=== PATIENT | male | born 1980 | race Caucasian/White ===

== ENCOUNTER → 2016-12-24 | Outpatient (REF) | payer BC ==
[2016-12-24 12:08] LABS: ALBUMIN 3.8 GM/DL (3.2-5.2); ALBUMIN/GLOBULIN RATIO 1.36 (1.00-1.93); ALKALINE PHOSPHATASE 57 U/L (45-117); ALT/SGPT 66 U/L (12-78); ANION GAP 7 MEQ/L (8-16); AST/SGOT 18 U/L (15-37); BILIRUBIN,TOTAL 0.3 MG/DL (0.2-1.0); BLOOD UREA NITROGEN 17 MG/DL (7-18); CALCIUM LEVEL 8.8 MG/DL (8.5-10.1); CARBON DIOXIDE LEVEL 29 MEQ/L (21-32); CHLORIDE LEVEL 103 MEQ/L (98-107); CREATININE FOR GFR 0.92 MG/DL (0.70-1.30); GLOMERULAR FILTRATION RATE > 60.0 (>60); GLUCOSE, FASTING 98 MG/DL (70-105); POTASSIUM SERUM 4.1 MEQ/L (3.5-5.1); SODIUM LEVEL 139 MEQ/L (136-145); TOTAL PROTEIN 6.6 GM/DL (6.4-8.2)
== END ==
LOC: M SFHCPLAZ 09:10
PROVIDERS: ATTEND Nurse Practitioner Family
DX: I10 Essential (primary) hypertension (principal); E88.81 Metabolic syndrome and other insulin resistance; E55.9 Vitamin D deficiency, unspecified

== ENCOUNTER 2018-04-06 16:10 | Emergency (ER) | payer BC ==
[2018-04-06] MEDS: NS 1,000 ML IV (17:21)
[2018-04-06 17:32] LABS: VENOUS BASE EXCESS -0.2 (-2.0-2.0); VENOUS HCO3 25.3 MEQ/L (23.0-27.0); VENOUS O2 SATURATION 85.3 % (60.0-80.0); VENOUS PARTIAL PRESSURE CO2 44.3 mmHg (38.0-50.0); VENOUS PH 7.375 UNITS (7.330-7.430); VENOUS TOTAL CO2 26.7 MEQ/L (24.0-28.0)
[2018-04-06 17:36] LABS: BASO # 0.1 10^3/uL (0.0-0.2); BASO % 0.7 % (0.0-1.0); EOS # 0.2 10^3/uL (0.0-0.50); EOS % 1.9 % (0.0-3.0); HEMATOCRIT 44.9 % (42.0-52.0); HEMOGLOBIN 16.4 g/dl (13.5-17.5); IMMATURE GRANULOCYTE % 0.2 % (0-3.0); LYMPH # 2.2 10^3/uL (1.5-4.5); LYMPH % 26.3 % (24.0-44.0); MEAN CORPUSCULAR HEMOGLOBIN 32.2 pg (27.0-33.0); MEAN CORPUSCULAR HGB CONC 36.5 g/dl (32.0-36.5); MEAN CORPUSCULAR VOLUME 88.2 fl (80.0-96.0); MONO # 0.8 10^3/uL (0.0-0.8); NEUTROPHILS # 5.2 10^3/uL (1.8-7.7); NEUTROPHILS % 61.9 % (36.0-66.0); PLATELET COUNT, AUTOMATED 321 10^3/uL (150-450); RED BLOOD COUNT 5.09 10^6/uL (4.30-6.10); WHITE BLOOD COUNT 8.4 10^3/uL (4.0-10.0)
[2018-04-06 17:43] LABS: ALBUMIN 4.1 GM/DL (3.2-5.2); ALBUMIN/GLOBULIN RATIO 1.14 (1.00-1.93); ALKALINE PHOSPHATASE 94 U/L (45-117); ALT/SGPT 143 U/L (12-78); ANION GAP 11 MEQ/L (8-16); AST/SGOT 59 U/L (7-37); BILIRUBIN,DIRECT 0.1 MG/DL (0.0-0.2); BILIRUBIN,TOTAL 0.5 MG/DL (0.2-1.0); BLOOD UREA NITROGEN 14 MG/DL (7-18); CALCIUM LEVEL 8.7 MG/DL (8.5-10.1); CARBON DIOXIDE LEVEL 27 MEQ/L (21-32); CHLORIDE LEVEL 95 MEQ/L (98-107); CREATININE FOR GFR 1.25 MG/DL (0.70-1.30); GLOMERULAR FILTRATION RATE > 60.0 (>60); LIPASE 287 U/L (73-393); POTASSIUM SERUM 4.3 MEQ/L (3.5-5.1); SODIUM LEVEL 133 MEQ/L (136-145); TOTAL PROTEIN 7.7 GM/DL (6.4-8.2)
[2018-04-06 17:44] LABS: ACETONE/KETONE 10.74 MG/DL (<2.81); GLUCOSE, FASTING 433 MG/DL (70-100)
[2018-04-06 17:56] LABS: KETONE, URINE AUTO RFX 1+ mg/dL (NEGATIVE); LEUKOCYTE ESTERASE UR AUTO RFX NEGATIVE (NEGATIVE); NITRITE, URINE AUTO RFX NEGATIVE (NEGATIVE); RBC, URINE AUTO RFX 2 /HPF (0-3); SPECIFIC GRAVITY UR AUTO RFX 1.032 (1.002-1.035); SQUAM EPITHELIAL CELL UR AURFX 0 /HPF (0-6); WBC, URINE AUTO RFX 1 /HPF (0-3)
[2018-04-06 17:58] LABS: ESTIMATED AVERAGE GLUCOSE 272 MG/DL (60-110); HEMOGLOBIN A1c 11.1 %
[2018-04-06] MEDS: metFORMIN (GLUCOPHAGE) 1000 MG TABLET PO (18:08)
[2018-04-06] MEDS: HumuLIN R (REGULAR) INSULIN (NovoLIN R) **100U/ML** PER UNIT IV (18:12)
[2018-04-06 19:11] LABS: VENOUS BASE EXCESS -0.6 (-2.0-2.0); VENOUS HCO3 24.9 MEQ/L (23.0-27.0); VENOUS O2 SATURATION 82.2 % (60.0-80.0); VENOUS PARTIAL PRESSURE CO2 43.8 mmHg (38.0-50.0); VENOUS PARTIAL PRESSURE O2 46.9 mmHg (30.0-50.0); VENOUS PH 7.372 UNITS (7.330-7.430); VENOUS STANDARD HCO3 23.6 MEQ/L; VENOUS TOTAL CO2 26.2 MEQ/L (24.0-28.0)
[2018-04-06 19:16] LABS: BEDSIDE GLUCOSE 308 MG/DL (70-105)
[2018-04-06 20:23] LABS: BEDSIDE GLUCOSE 286 MG/DL (70-105)
[2018-04-12 15:13] LABS: BEDSIDE GLUCOSE 396 MG/DL (70-105)
== END 2018-04-06 21:18 | disposition home or self-care (01) ==
LOC: M ED 16:10
DX: E11.65 Type 2 diabetes mellitus with hyperglycemia (principal); I10 Essential (primary) hypertension; K21.9 Gastro-esophageal reflux disease without esophagitis; Z79.899 Other long term (current) drug therapy; Z79.84 Long term (current) use of oral hypoglycemic drugs; F17.210 Nicotine dependence, cigarettes, uncomplicated
CPT/HCPCS: 83690

== ENCOUNTER → 2018-04-06 | Outpatient (REF) | payer BC ==
[2018-04-06 18:32] LABS: APPEARANCE, URINE CLEAR (CLEAR); BACTERIA, URINE AUTO NEGATIVE (NEGATIVE); BILIRUBIN, URINE AUTO NEGATIVE (NEGATIVE); BLOOD, URINE BLOOD NEGATIVE (NEGATIVE); COLOR, URINE YELLOW (YELLOW); GLUCOSE, URINE (UA) AUTO 3+ mg/dL (NEGATIVE); KETONE, URINE AUTO 1+ mg/dL (NEGATIVE); LEUKOCYTE ESTERASE, URINE AUTO NEGATIVE (NEGATIVE); MUCUS, URINE SMALL (NEGATIVE); NITRITE, URINE AUTO NEGATIVE (NEGATIVE); PROTEIN, URINE AUTO NEGATIVE (NEGATIVE); RBC, URINE AUTO 0 /HPF (0-3); SPECIFIC GRAVITY URINE AUTO 1.039 (1.002-1.035); SQUAMOUS EPITHELIAL CELL UR AU 2 /HPF (0-6); UROBILINOGEN, URINE AUTO 0.2 mg/dL (0.0-2.0); WBC, URINE AUTO 2 /HPF (0-3)
[2018-04-06 23:53] LABS: CHLAMYDIA DNA AMPLIFICATION NEGATIVE (NEGATIVE); GC DNA AMPLIFICATION NEGATIVE (NEGATIVE)
== END ==
LOC: M SFHCPLAZ 17:34
DX: R30.0 Dysuria (principal)

== ENCOUNTER → 2018-04-14 | Outpatient (CLI) | payer BC | LOC: M RAD 15:44 | DX: E04.1 Nontoxic single thyroid nodule (principal) | CPT/HCPCS: 76536 ==

== ENCOUNTER → 2018-06-02 | Outpatient (REF) | payer BC ==
[2018-06-02 15:38] LABS: ALBUMIN 3.8 GM/DL (3.2-5.2); ALBUMIN/GLOBULIN RATIO 1.36 (1.00-1.93); ALKALINE PHOSPHATASE 49 U/L (45-117); ALT/SGPT 81 U/L (12-78); ANION GAP 9 MEQ/L (8-16); AST/SGOT 29 U/L (7-37); BILIRUBIN,TOTAL 0.3 MG/DL (0.2-1.0); BLOOD UREA NITROGEN 15 MG/DL (7-18); CALCIUM LEVEL 8.9 MG/DL (8.5-10.1); CARBON DIOXIDE LEVEL 27 MEQ/L (21-32); CHLORIDE LEVEL 106 MEQ/L (98-107); CHOLESTEROL LEVEL 172 MG/DL (<200); CHOLESTEROL RISK RATIO 4.777 (<5); CREATININE FOR GFR 0.78 MG/DL (0.70-1.30); FREE T4 1.06 NG/DL (0.76-1.46); GLOMERULAR FILTRATION RATE > 60.0 (>60); GLUCOSE, FASTING 110 MG/DL (70-100); HDL CHOLESTEROL 36 MG/DL (>40); LDL CHOLESTEROL 108 MG/DL (<100); NON-HDL-C 136 MG/DL; POTASSIUM SERUM 4.1 MEQ/L (3.5-5.1); SODIUM LEVEL 142 MEQ/L (136-145); TOTAL PROTEIN 6.6 GM/DL (6.4-8.2); TRIGLYCERIDES LEVEL 140 MG/DL (<150)
[2018-06-02 15:41] LABS: ESTIMATED AVERAGE GLUCOSE 183 MG/DL (60-110)
== END ==
LOC: M SFHCPLAZ 09:20
DX: E11.9 Type 2 diabetes mellitus without complications (principal); E04.1 Nontoxic single thyroid nodule; Z13.220 Encounter for screening for lipoid disorders
CPT/HCPCS: 84443

== ENCOUNTER 2018-06-15 07:59 | Emergency (ER) | payer BC ==
[2018-06-15 08:57] LABS: BASO # 0.1 10^3/uL (0.0-0.2); BASO % 0.6 % (0.0-1.0); EOS # 0.2 10^3/uL (0.0-0.50); EOS % 2.5 % (0.0-3.0); HEMATOCRIT 42.7 % (42.0-52.0); HEMOGLOBIN 14.9 g/dl (13.5-17.5); LYMPH % 24.1 % (24.0-44.0); MEAN CORPUSCULAR HEMOGLOBIN 31.6 pg (27.0-33.0); MEAN CORPUSCULAR HGB CONC 34.9 g/dl (32.0-36.5); MEAN CORPUSCULAR VOLUME 90.5 fl (80.0-96.0); MONO # 0.7 10^3/uL (0.0-0.8); MONO % 8.6 % (0.0-5.0); NEUTROPHILS # 5.3 10^3/uL (1.8-7.7); NEUTROPHILS % 63.2 % (36.0-66.0); PLATELET COUNT, AUTOMATED 271 10^3/uL (150-450); RED BLOOD COUNT 4.72 10^6/uL (4.30-6.10); RED CELL DISTRIBUTION WIDTH 12.2 % (11.5-14.5); WHITE BLOOD COUNT 8.3 10^3/uL (4.0-10.0)
[2018-06-15] MEDS: PROMETHAZINE INJ 25 MG/ML VIAL (J2550) IV (09:03)
[2018-06-15 09:20] LABS: ANION GAP 8 MEQ/L (8-16); BLOOD UREA NITROGEN 13 MG/DL (7-18); CARBON DIOXIDE LEVEL 28 MEQ/L (21-32); CHLORIDE LEVEL 106 MEQ/L (98-107); CK-MB VALUE MASS < 1.0 NG/ML (<3.6); CPK CREATINE PHOSPHOKINASE 103 U/L (39-308); CREATININE FOR GFR 0.78 MG/DL (0.70-1.30); GLOMERULAR FILTRATION RATE > 60.0 (>60); GLUCOSE, FASTING 133 MG/DL (70-100); MB/CK RELATIVE INDEX 0.97 (< OR =4); POTASSIUM SERUM 4.3 MEQ/L (3.5-5.1); SODIUM LEVEL 142 MEQ/L (136-145); TROPONIN I < 0.02 NG/ML (< 0.10)
[2018-06-15] MEDS: MECLIZINE 25 MG TABLET PO (12:27)
== END 2018-06-15 14:18 | disposition home or self-care (01) ==
LOC: M ED 07:59
DX: H83.09 Labyrinthitis, unspecified ear (principal); E11.9 Type 2 diabetes mellitus without complications; I10 Essential (primary) hypertension; G47.33 Obstructive sleep apnea (adult) (pediatric); Z79.899 Other long term (current) drug therapy; Z79.84 Long term (current) use of oral hypoglycemic drugs; Z79.51 Long term (current) use of inhaled steroids
CPT/HCPCS: 70551

== ENCOUNTER → 2018-08-23 | Outpatient (REF) | payer BC ==
[2018-08-23 11:57] LABS: ESTIMATED AVERAGE GLUCOSE 174 MG/DL (60-110); HEMOGLOBIN A1c 7.7 %
== END ==
LOC: M SFHCPLAZ 08:04
DX: E11.9 Type 2 diabetes mellitus without complications (principal)
CPT/HCPCS: 83036

== ENCOUNTER → 2018-08-25 | Outpatient (REF) | payer BC ==
[2018-08-25 12:33] LABS: ALBUMIN 3.8 GM/DL (3.2-5.2); ALBUMIN/GLOBULIN RATIO 1.15 (1.00-1.93); ALKALINE PHOSPHATASE 63 U/L (45-117); ALT/SGPT 75 U/L (12-78); ANION GAP 9 MEQ/L (8-16); AST/SGOT 28 U/L (7-37); BILIRUBIN,TOTAL 0.4 MG/DL (0.2-1.0); BLOOD UREA NITROGEN 15 MG/DL (7-18); CALCIUM LEVEL 8.8 MG/DL (8.5-10.1); CARBON DIOXIDE LEVEL 27 MEQ/L (21-32); CHLORIDE LEVEL 103 MEQ/L (98-107); CHOLESTEROL LEVEL 164 MG/DL (<200); CHOLESTEROL RISK RATIO 4.823 (<5); CREATININE FOR GFR 0.97 MG/DL (0.70-1.30); GLOMERULAR FILTRATION RATE > 60.0 (>60); GLUCOSE, FASTING 126 MG/DL (70-100); HDL CHOLESTEROL 34 MG/DL (>40); LDL CHOLESTEROL 90 MG/DL (<100); NON-HDL-C 130 MG/DL; POTASSIUM SERUM 4.3 MEQ/L (3.5-5.1); SODIUM LEVEL 139 MEQ/L (136-145); TOTAL PROTEIN 7.1 GM/DL (6.4-8.2); TRIGLYCERIDES LEVEL 199 MG/DL (<150)
== END ==
LOC: M SFHCPLAZ 10:07
DX: E78.2 Mixed hyperlipidemia (principal)
CPT/HCPCS: 80053

== ENCOUNTER → 2018-11-24 | Outpatient (REF) | payer BC ==
[~2018-11-24] MED LIST: CHLO125TA; ESOM1CAP5; FLUT11IN; LISI-538; MECL-68 PO; METF10004 PO; VENTAER; ZOFR4TAB14 PO
[2018-11-24 15:15] LABS: HEMOGLOBIN A1c 6.4 %
== END ==
LOC: M SFHCPLAZ 09:58
PROVIDERS: ATTEND Physician Assistant
DX: E78.2 Mixed hyperlipidemia (principal)

== ENCOUNTER → 2019-05-04 | Outpatient (REF) | payer BC ==
[~2019-05-04] MED LIST changes: -MECL-68 PO; +MECL1TAB31 PO
[2019-05-04 12:36] LABS: AMORPHOUS SEDIMENT SMALL (NEGATIVE); APPEARANCE, URINE CLEAR (CLEAR); BACTERIA, URINE AUTO NEGATIVE (NEGATIVE); BILIRUBIN, URINE AUTO NEGATIVE (NEGATIVE); BLOOD, URINE BLOOD 1+ (NEGATIVE); COLOR, URINE YELLOW (YELLOW); GLUCOSE, URINE (UA) AUTO 3+ mg/dL (NEGATIVE); KETONE, URINE AUTO 1+ mg/dL (NEGATIVE); LEUKOCYTE ESTERASE, URINE AUTO NEGATIVE (NEGATIVE); NITRITE, URINE AUTO NEGATIVE (NEGATIVE); PROTEIN, URINE AUTO NEGATIVE (NEGATIVE); RBC, URINE AUTO 2 /HPF (0-3); SPECIFIC GRAVITY URINE AUTO 1.036 (1.002-1.035); SQUAMOUS EPITHELIAL CELL UR AU 1 /HPF (0-6); UROBILINOGEN, URINE AUTO 0.2 mg/dL (0.0-2.0); WBC, URINE AUTO 5 /HPF (0-3)
[2019-05-04 13:02] LABS: BLOOD UREA NITROGEN 16 MG/DL (7-18); CALCIUM LEVEL 10.3 MG/DL (8.5-10.1); CARBON DIOXIDE LEVEL 31 MEQ/L (21-32); CHLORIDE LEVEL 93 MEQ/L (98-107); CREATININE FOR GFR 1.27 MG/DL (0.70-1.30); GLOMERULAR FILTRATION RATE > 60.0 (>60); GLUCOSE, FASTING 439 MG/DL (70-100); POTASSIUM SERUM 4.4 MEQ/L (3.5-5.1); SODIUM LEVEL 133 MEQ/L (136-145)
[2019-05-04 14:45] LABS: HEMOGLOBIN A1c 11.4 %
[2019-05-04 16:53] LABS: CREATININE, URINE 66.8 MG/DL; MALB URINE SIEMENS 57.7 MG/L; MAU/CREAT RATIO 86.3 MCG/MG (0.0-30.0)
== END ==
LOC: M SFHCPLAZ 09:45
PROVIDERS: ATTEND Family Medicine
DX: E11.9 Type 2 diabetes mellitus without complications (principal); I10 Essential (primary) hypertension; R35.8 Other polyuria

== ENCOUNTER → 2019-06-15 | Outpatient (REF) | payer BC ==
[~2019-06-15] MED LIST changes: +MECL-68 PO; -MECL1TAB31 PO
[2019-06-15 13:20] LABS: ALBUMIN 4.1 GM/DL (3.2-5.2); ALT/SGPT 95 U/L (12-78); BILIRUBIN,TOTAL 0.5 MG/DL (0.2-1.0); BLOOD UREA NITROGEN 15 MG/DL (7-18); CALCIUM LEVEL 9.5 MG/DL (8.5-10.1); CARBON DIOXIDE LEVEL 28 MEQ/L (21-32); CHLORIDE LEVEL 100 MEQ/L (98-107); CREATININE FOR GFR 0.96 MG/DL (0.70-1.30); GLOMERULAR FILTRATION RATE > 60.0 (>60); GLUCOSE, FASTING 260 MG/DL (70-100); SODIUM LEVEL 137 MEQ/L (136-145); TOTAL PROTEIN 7.2 GM/DL (6.4-8.2)
== END ==
LOC: M SFHCPLAZ 10:52
PROVIDERS: ATTEND Family Medicine
DX: K76.0 Fatty (change of) liver, not elsewhere classified (principal); I10 Essential (primary) hypertension

== ENCOUNTER → 2019-08-03 | Outpatient (CLI) | payer BC ==
--- NOTE | 2019-08-04 05:03 | REP ---
Clinical: Left anterior abdominal wall mass. Elevated liver function test. Technique: Real time bolanos scale and color evaluation using curved array transducer. Findings: Liver is enlarged and demonstrates diffuse fatty infiltration without focal hepatic lesion identified. Pancreas is incompletely evaluated due to interposed bowel gas but visualized portions appear normal. Gallbladder is normal and without gallstones, wall thickening, or pericholecystic fluid. Common bile duct is upper limits of normal at 7 mm diameter. Right kidney is normal in reniform shape without hydronephrosis and measures 15.4 x 8.7 x 6.2 cm. No ascites. Directed ultrasound examination of the left anterior abdominal wall demonstrates no obvious fluid collection or mass lesion. Impression: 1. Hepatomegaly and hepatic steatosis. 2. No obvious anterior abdominal wall mass or abnormality appreciated. Electronically Signed by Patrice Bergman MD 08/04/2019 04:55 A
== END ==
LOC: M RAD 08:35
PROVIDERS: ATTEND Family Medicine
DX: R94.5 Abnormal results of liver function studies (principal)

== ENCOUNTER → 2019-08-10 | Outpatient (REF) | payer BC ==
[2019-08-10 11:51] LABS: HEMATOCRIT 47.2 % (42.0-52.0); HEMOGLOBIN 15.6 g/dl (13.5-17.5); MEAN CORPUSCULAR HEMOGLOBIN 31.6 pg (27.0-33.0); MEAN CORPUSCULAR HGB CONC 33.1 g/dl (32.0-36.5); MEAN CORPUSCULAR VOLUME 95.5 fl (80.0-96.0); PLATELET COUNT, AUTOMATED 267 10^3/uL (150-450); RED BLOOD COUNT 4.94 10^6/uL (4.30-6.10); WHITE BLOOD COUNT 9.1 10^3/uL (4.0-10.0)
[2019-08-10 12:29] LABS: ALBUMIN 3.7 GM/DL (3.2-5.2); ALT/SGPT 60 U/L (12-78); BILIRUBIN,TOTAL 0.6 MG/DL (0.2-1.0); BLOOD UREA NITROGEN 21 MG/DL (7-18); CALCIUM LEVEL 9.2 MG/DL (8.5-10.1); CARBON DIOXIDE LEVEL 27 MEQ/L (21-32); CHLORIDE LEVEL 101 MEQ/L (98-107); CREATININE FOR GFR 1.01 MG/DL (0.70-1.30); GLOMERULAR FILTRATION RATE > 60.0 (>60); GLUCOSE, FASTING 225 MG/DL (70-100); POTASSIUM SERUM 4.2 MEQ/L (3.5-5.1); SODIUM LEVEL 137 MEQ/L (136-145); TOTAL PROTEIN 6.9 GM/DL (6.4-8.2)
[2019-08-10 14:01] LABS: HEMOGLOBIN A1c 9.1 %
== END ==
LOC: M SFHCPLAZ 09:40
PROVIDERS: ATTEND Family Medicine
DX: R94.5 Abnormal results of liver function studies (principal); E11.9 Type 2 diabetes mellitus without complications

== ENCOUNTER 2020-07-09 06:46 | Inpatient (IN) | payer BC ==
[~2020-07-09] VITALS: Ht 188 cm; Wt 147.8 kg
[~2020-07-09 06:46] MED LIST changes: -ESOM1CAP5; +ESOM1CAP5 PO; -FLUT11IN; +FLUT11IN INH; -LISI-538; +LISI-538 PO; -MECL-68 PO; +MECL1TAB31 PO; -VENTAER; +VENTAER INH
[2020-07-09] MEDS ORDERED: AUGM875T28 PO (07:00)
[2020-07-09] MEDS ORDERED: ATOR1TAB19 PO (07:00)
[2020-07-09] MEDS ORDERED: NS 1,000 ML IV ONE (07:30)
[2020-07-09] MEDS ORDERED: methylPREDNISolone 125MG 2ML VIAL IV ONE (07:30)
[2020-07-09] MEDS: ALBUTEROL 90 MCG/ACT 8GM HFA INHALER INH SCH ×5 (07:50→19:00)
--- NOTE | 2020-07-09 08:12 | REPVR ---
PROCEDURE INFORMATION: Exam: XR Chest, 1 View Exam date and time: 07/09/20 (7:54am) Age: 39 years old Clinical indication: Cough and dyspnea. COVID work-up. TECHNIQUE: Imaging protocol: Portable CXR Views: 1 view COMPARISON: Portable CXR of 06/15/18 FINDINGS: Comparison is made with a portable CXR done on 06/15/18. Stable heart size. Patchy airspace disease in the right infrahilar region. The left lung is clear. No pleural effusions. IMPRESSION: Patchy RLL infiltrate -- probable infectious pneumonia. The left lung is clear. No pleural effusions. The appearance is not typical for COVID pneumonia. Electronically signed by: La Kilpatrick On 07/09/2020 08:12:22 AM
[2020-07-09 08:15] LABS: BASO % 0.1 % (0.0-1.0); HEMATOCRIT 43.8 % (42.0-52.0); LYMPH # 0.5 10^3/uL (1.5-5.0); LYMPH % 7.1 % (24.0-44.0); MEAN CORPUSCULAR HEMOGLOBIN 30.7 pg (27.0-33.0); MEAN CORPUSCULAR HGB CONC 34.2 g/dl (32.0-36.5); MEAN CORPUSCULAR VOLUME 89.6 fl (80.0-96.0); MONO # 0.4 10^3/uL (0.0-0.8); MONO % 5.6 % (0.0-5.0); NEUTROPHILS # 6.4 10^3/uL (1.5-8.5); NEUTROPHILS % 86.4 % (36.0-66.0); PLATELET COUNT, AUTOMATED 199 10^3/uL (150-450); RED BLOOD COUNT 4.89 10^6/uL (4.30-6.10); WHITE BLOOD COUNT 7.4 10^3/uL (4.0-10.0)
[2020-07-09] MEDS ORDERED: ACETAMINOPHEN 325 MG TAB PO ONE (08:30)
--- NOTE | 2020-07-09 08:31 | ECGEPIP ---
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
[2020-07-09 08:49] LABS: ALBUMIN 2.9 GM/DL (3.2-5.2); ALT/SGPT 42 U/L (12-78); BILIRUBIN,TOTAL 0.6 MG/DL (0.2-1.0); BLOOD UREA NITROGEN 15 MG/DL (7-18); CALCIUM LEVEL 8.4 MG/DL (8.5-10.1); CARBON DIOXIDE LEVEL 24 MEQ/L (21-32); CHLORIDE LEVEL 92 MEQ/L (98-107); GLOMERULAR FILTRATION RATE > 60.0 (>60); GLUCOSE, FASTING 160 MG/DL (70-100); NT-PRO BNP 44 PG/ML (<125); POTASSIUM SERUM 3.8 MEQ/L (3.5-5.1); SODIUM LEVEL 128 MEQ/L (136-145); TOTAL PROTEIN 6.9 GM/DL (6.4-8.2)
[2020-07-09] MEDS: FLUTICASONE HFA 110 MCG 12 GM INHALER (FLOVENT) INH SCH (09:00)
[2020-07-09] MEDS: THIAMINE 200MG/2ML VIAL (J3411 PER 100MG) IV SCH (09:00)
[2020-07-09] MEDS: lisinopriL 20 MG TAB PO SCH (09:00)
[2020-07-09] MEDS: PANTOPRAZOLE 40MG TAB (PROTONIX) PO SCH (09:00)
[2020-07-09] MEDS ORDERED: LevoFLOXacin IV 750 MG in IV 1 EA IV ONE (09:15)
[2020-07-09] MEDS ORDERED: METF-877 PO (09:22)
[2020-07-09] MEDS ORDERED: CHLO25TA PO (09:22)
[2020-07-09] MEDS ORDERED: ONDA4TAB6 PO (09:22)
[2020-07-09] MEDS ORDERED: MECL-86 PO (09:22)
[2020-07-09] MEDS ORDERED: BASA100I SC (09:22)
[2020-07-09] MEDS ORDERED: MECLIZINE 25 MG TABLET PO PRN (10:15)
[2020-07-09] MEDS ORDERED: GLUCOSE 4GM CHEW TABLET PO PRN (10:15)
[2020-07-09] MEDS ORDERED: DEXTROSE 50% 50 ML SYRINGE IV PRN (10:15)
[2020-07-09] MEDS ORDERED: GLUCAGON INJ 1MG VIAL SC PRN (10:15)
[2020-07-09] MEDS ORDERED: ONDANSETRON 4MG/2ML VIAL IV PRN (10:15)
[2020-07-09 12:57] LABS: BLOOD UREA NITROGEN 18 MG/DL (7-18); CALCIUM LEVEL 8.8 MG/DL (8.5-10.1); CARBON DIOXIDE LEVEL 24 MEQ/L (21-32); CHLORIDE LEVEL 92 MEQ/L (98-107); CREATININE FOR GFR 1.09 MG/DL (0.70-1.30); GLOMERULAR FILTRATION RATE > 60.0 (>60); GLUCOSE, FASTING 247 MG/DL (70-100); POTASSIUM SERUM 3.6 MEQ/L (3.5-5.1); SODIUM LEVEL 128 MEQ/L (136-145)
--- NOTE | 2020-07-09 13:08 | HPEPDOC ---
General Date of Admission Jul 09, 2020 at 09:52 Date of Service: Jul 09, 2020 Chief Complaint The patient is a 39-year-old male admitted with a reason for visit of Diabetes, Hyponatremia, Rll Pneumonia. Source: Patient Exam Limitations: No limitations History of Present Illness Mr. Chicas is a 39 year old male here with DM, active smoking, and asthma here with 4 days of fever/chills, dyspnea, and productive cough with clear sputum found to have right lower lobe pneumonia and hyponatremia. On , he was feeling well, but Wednesday morning, he woke up feeling ill. Denies sick contacts. Lives with fiancee and daughter who are not ill. Last travel was about 2 to 3 weeks ago at a casino in [place]. In addition to the symptoms above, he had fatigue, body aches, and generalized malaise. Symptoms where not improving over the weekend and went to urgent care. COVID was negative and he was put on Augmentin. He did not improve on Augmentin and came to the ED. Respiratory viral panel was negative, but CXR demonstrated RLL PNA. He had another fever in the ED. Otherwise, he has been having abdominal pain that improves with diarrhea. He has not been able to tolerate a diet since he got I'll. Work up in the ED is also significant for hyponatremia. He is on Chlorthalidone, but PCP has never mentioned hyponatremia to him Home Medications Scheduled Albuterol Sulfate (Ventolin Hfa) 108 Mcg/Act Aer, 2 PUFFS INH TID, (Reported) Amoxicillin/Potassium Clav (Augmentin 875-125 Tablet) 1 Each Tablet, 1 TAB PO BID, (Reported) FILLED 07/07/20 FOR 10 DAYS Atorvastatin Calcium (Atorvastatin Calcium) 10 Mg Tablet, 10 MG PO DAILY, (Reported) Chlorthalidone (Chlorthalidone) 25 Mg Tablet, 12.5 MG PO DAILY, (Reported) Esomeprazole Magnesium (Esomeprazole Magnesium) 40 Mg Cap, 40 MG PO DAILY, (Reported) Fluticasone Propionate (Flovent Hfa) 110 Mcg/Act Aer, 1 PUFF INH DAILY, (Reported) Insulin Glargine,Hum.rec.anlog (Basaglar Kwikpen U-100) 100 Unit/1 Ml Insuln.pen, 40 UNIT SC QHS, (Reported) Lisinopril (Lisinopril) 20 Mg Tab, 20 MG PO DAILY, (Reported) Metformin HCl (Metformin HCl) 1,000 Mg Tablet, 1,000 MG PO BID, (Reported) Scheduled PRN Meclizine HCl (Meclizine HCl) 25 Mg Tablet, 25 MG PO TID PRN for VERTIGO/DIZZINESS, (Reported) Ondansetron (Ondansetron Odt) 4 Mg Tab.rapdis, 4 MG PO Q6H PRN for NAUSEA, (Reported) Allergies Coded Allergies: No Known Allergies (Unverified , 07/09/20) Past Medical History Medical History 1. Diabetes mellitus 2. High blood pressure 3. Asthma 4. Family history of early [place] Surgical History 1. Cardiac cath, no stents placed Family History Father: , [place] at 43. from [place] at 65 Mother: Alive, healthy, Denies any DM, thyroid, or blood pressure problems with mother Social History * Smoker: current smoker (1ppd for 25 years) Alcohol: other (Last drink , Drinks couple times a week) Drugs: denies Recent Travel/Sick Contacts: Reports: Recent travel (Was at [employer] [facility] last 2 to 3 weeks ago) A-FIB/CHADSVASC A-FIB History Current/History of A-Fib/PAF?: No Review of Systems Constitutional: Reports: Chills, Fever Eyes: Denies: Vision change ENT: Denies: Sore Throat Skin: Denies: Rash Pulmonary: Reports: Dyspnea, Cough (productive with clear sputum) Cardiovascular: Denies: Chest Pain Gastrointestinal: Reports: Nausea, Abdominal Pain, Diarrhea Genitourinary: Reports: Other Symptoms (Dark colored urine); Denies: Dysuria Endocrine: Denies: Polyphagia, Polyuria Musculoskeletal: Reports: Other Symptoms (Generalized fatigue and malaize) Neurological: Reports: Other Symptoms (Intermittent paresthesias in the legs, short, resolves within a few seconds. ) Psych: Denies: Thoughts of Self Harm, Thoughts of Harming Other Physical Examination General Exam: Positive: Alert, Cooperative, Mild Distress Eye Exam: Positive: EOMI; Negative: Sclera icteric ENT Exam: Positive: Atraumatic Neck Exam: Positive: Supple Chest Exam: Positive: Diminished Heart Exam: Positive: Tachycardic, Regular Rhythm Abdomen Exam: Positive: Normal bowel sounds, Soft, Other (obese); Negative: Tenderness Extremity Exam: Positive: Edema (bilateral ) Neuro Exam: Positive: Cranial Nerves 3-12 NL Psych Exam: Positive: Mental status NL, Mood NL Vital Signs Vital Signs Date Time Temp Pulse Resp B/P (MAP) Pulse Ox O2 Delivery O2 Flow Rate FiO2 07/09/20 10:55 96.6 102 22 129/82 (98) 96 07/09/20 07:25 Room Air Laboratory Data Labs 24H Laboratory Tests 2 07/09/20 07:54: POC Troponin I (Misc) 0.00 07/09/20 07:58: Immature Granulocyte % (Auto) 0.8, Neutrophils (%) (Auto) 86.4H, Lymphocytes (%) (Auto) 7.1L, Monocytes (%) (Auto) 5.6H, Eosinophils (%) (Auto) 0.0, Basophils (%) (Auto) 0.1, Neutrophils # (Auto) 6.4, Lymphocytes # (Auto) 0.5L, Monocytes # (Auto) 0.4, Eosinophils # (Auto) 0.0, Basophils # (Auto) 0.0, Nucleated Red Blood Cells % (auto) 0.0, Anion Gap 12, Glomerular Filtration Rate > 60.0, Lactic Acid Level 2.0, Calcium Level 8.4L, Total Bilirubin 0.6, Aspartate Amino Transf (AST/SGOT) 56H, Alanine Aminotransferase (ALT/SGPT) 42, Alkaline Phosphatase 57, ZF-Hci-G-Type Natriuretic Peptide 44, Total Protein 6.9, Albumin 2.9L, Albumin/Globulin Ratio 0.7 CBC/BMP Laboratory Tests 07/09/20 07:58 Microbiology Microbiology 07/09/20 Blood Culture, Received Pending 07/09/20 Respiratory Virus Panel (PCR) (MAL) - Final, Complete 07/09/20 Blood Culture, Received Pending Assessment/Plan Mr. Chicas is a 39 year old male with sepsis secondary to right lower lobe pneumonia and hyponatremia. Started 4 days ago with fever, dyspnea, cough with productive sputum, malaise, fatigue, abdominal pain, and N/V/D. He has not been able to tolerate a diet. He has been having fevers of 103 at home. While in the ED, he has had a fever of 102.1, tachycardia above 100, and tachypnea with respiratory rate above 20. CXR demonstrated RLL. Symptoms did not improve with Augmentin. Will switch to IV levofloxacin and monitor vitals and symptoms. Otherwise, he has mild hyponatremia which may be secondary to thiazide vs possible legionella. Thiazide has been discontinued. Legionella urine antigen has been ordered Plan / VTE VTE Prophylaxis Ordered?: Yes Plan Plan 1. Sepsis secondary to right lower lobe pneumonia Meets 3 out of 4 SIRS criteria (fever, tachycardia, tachypnea) Source is right lower lobe pneumonia Question possible Legionella as he has associated abdominal pain with diarrhea and hyponatremia. Pending urine Legionella antigen Received fluids on levofloxacin. 2. Right lower lobe pneumonia Dyspnea with productive cough Did not respond to Augmentin IV levofloxacin Pending sputum culture and urine Legionella antigen Respiratory panel negative 3. Tobacco use [id number] history of smoking Current smoker He has not smoked since becoming ill. Offered nicotine patch, but he has no cravings at this time 4. Anorexia Poor appetite secondary to sepsis Clear liquid diet Zofran as needed, scheduled pantoprazole 5. Hyponatremia May be secondary to dehydration versus medication versus Legionella infection Pending Legionella test Received fluids we'll recheck BMP Hold chlorthalidone as it can contribute to hyponatremia 5. Asthma Stable Continue albuterol as needed 6. Diabetes mellitus As on clear liquid diet decreased Levemir by half. Now on 20 units subcutaneous at night Continue sliding scale insulin 7. Hypertension Continue lisinopril Held chlorthalidone If blood pressure not controlled can add on amlodipine 8. History of early heart disease Father had an [place] at the age of 43, at the age of 65 from [place] He's had a cardiac cath in the past, no stent placed Continue statin 9. DVT prophylaxis Lovenox Dispo: Pending results from legionella antigen and fever response to antibiotics FITZ ROLLINS DO Jul 09, 2020 11:44
[2020-07-09] MEDS ORDERED: POTASSIUM CHLORIDE 10 MEQ SR TABLET PO ONE (14:00)
[2020-07-09 14:40] VITALS: BP 142/99
[2020-07-09] MEDS: ATORVASTATIN 10 MG TAB PO SCH (15:10)
[2020-07-09] MEDS: HumaLOG INSULIN (NovoLOG) PER UNIT SC SCH ×3 (15:11→20:42)
[2020-07-09] MEDS: NS 1,000 ML IV SCH ×3 (15:28→23:16)
[2020-07-09 16:21] LABS: BLOOD UREA NITROGEN 19 MG/DL (7-18); CALCIUM LEVEL 8.4 MG/DL (8.5-10.1); CARBON DIOXIDE LEVEL 22 MEQ/L (21-32); CHLORIDE LEVEL 94 MEQ/L (98-107); CREATININE FOR GFR 1.09 MG/DL (0.70-1.30); GLOMERULAR FILTRATION RATE > 60.0 (>60); GLUCOSE, FASTING 280 MG/DL (70-100); POTASSIUM SERUM 3.5 MEQ/L (3.5-5.1); SODIUM LEVEL 129 MEQ/L (136-145)
[2020-07-09] MEDS ORDERED: LEVEMIR (INSULIN DETEMIR) 1 UNITS/0.01ML SC SCH (21:00)
[2020-07-09 22:00] VITALS: BP 143/97
[2020-07-10 06:00] VITALS: BP 149/93
[2020-07-10 06:15] LABS: HEMATOCRIT 40.5 % (42.0-52.0); MEAN CORPUSCULAR HEMOGLOBIN 30.6 pg (27.0-33.0); MEAN CORPUSCULAR HGB CONC 34.6 g/dl (32.0-36.5); MEAN CORPUSCULAR VOLUME 88.6 fl (80.0-96.0); PLATELET COUNT, AUTOMATED 206 10^3/uL (150-450); RED BLOOD COUNT 4.57 10^6/uL (4.30-6.10); WHITE BLOOD COUNT 8.4 10^3/uL (4.0-10.0)
[2020-07-10 06:34] LABS: BLOOD UREA NITROGEN 19 MG/DL (7-18); CALCIUM LEVEL 8.9 MG/DL (8.5-10.1); CARBON DIOXIDE LEVEL 26 MEQ/L (21-32); CHLORIDE LEVEL 100 MEQ/L (98-107); GLOMERULAR FILTRATION RATE > 60.0 (>60); GLUCOSE, FASTING 249 MG/DL (70-100); POTASSIUM SERUM 3.9 MEQ/L (3.5-5.1); SODIUM LEVEL 134 MEQ/L (136-145)
[2020-07-10] MEDS: ALBUTEROL 90 MCG/ACT 8GM HFA INHALER INH SCH ×3 (08:14→20:25)
[2020-07-10] MEDS: lisinopriL 20 MG TAB PO SCH (08:17)
[2020-07-10] MEDS: ATORVASTATIN 10 MG TAB PO SCH (08:17)
[2020-07-10] MEDS: HumaLOG INSULIN (NovoLOG) PER UNIT SC SCH ×4 (08:17→21:00)
[2020-07-10] MEDS: PANTOPRAZOLE 40MG TAB (PROTONIX) PO SCH (08:17)
[2020-07-10] MEDS: ENOXAPARIN 40MG/0.4ML SYRINGE (J1650 PER 10MG) SC SCH (08:18)
[2020-07-10] MEDS: FLUTICASONE HFA 110 MCG 12 GM INHALER (FLOVENT) INH SCH (08:28)
[2020-07-10] MEDS ORDERED: INFLUENZA QUADRIVALENT PF VACCINE 0.5ML SYRINGE IM ONE (09:00)
[2020-07-10] MEDS: LevoFLOXacin IV 750 MG in IV 1 EA IV SCH (11:09)
[2020-07-10] MEDS: THIAMINE 200MG/2ML VIAL (J3411 PER 100MG) IV SCH (11:09)
[2020-07-10] MEDS ORDERED: ALBUTEROL 90 MCG/ACT 8GM HFA INHALER INH SCH (12:00)
[2020-07-10] MEDS ORDERED: ACETAMINOPHEN TAB 650MG DOSE (2X325MG) PO PRN (13:00)
[2020-07-10 14:00] VITALS: BP 114/79
[2020-07-10] MEDS: BENZONATATE 100 MG CAP PO SCH ×2 (16:57→21:35)
[2020-07-10] MEDS: NS 1,000 ML IV SCH (16:57)
--- NOTE | 2020-07-10 20:29 | IPNPDOC ---
Subjective Date Seen The patient was seen on 07/10/20. Subjective Chief Complaint/HPI Mr. Chicas is a 39 year old male here with DM, active smoking, and asthma here with 4 days of fever/chills, dyspnea, and productive cough with clear sputum found to have right lower lobe pneumonia and hyponatremia. Today he feels about the same. Dyspnea and coughing still present. No fevers overnight. Denies chest pain or dysuria. He does have abdominal pain from coughing and diarrhea. Constitutional: Denies: Fever Pulmonary: Reports: Dyspnea, Cough Cardiovascular: Denies: Chest Pain Gastrointestinal: Reports: Abdominal Pain, Diarrhea Genitourinary: Denies: Dysuria Objective Physical Examination General Exam: Positive: Alert, Cooperative, Mild Distress Eye Exam: Positive: EOMI ENT Exam: Positive: Atraumatic Neck Exam: Positive: Supple Chest Exam: Positive: Diminished Heart Exam: Positive: Tachycardic, Regular Rhythm Abdomen Exam: Positive: Normal bowel sounds, Soft, Other Extremity Exam: Positive: Edema Neuro Exam: Positive: Cranial Nerves 3-12 NL Psych Exam: Positive: Mental status NL, Mood NL Assessment /Plan Assessment Mr. Chicas is a 39 year old male with sepsis secondary to right lower lobe pneumonia and hyponatremia. Hyponatremia improved with holding thiazide. He had failed outpatient antibiotics with Augmentin. No fever while on levofloxacin. Still having dyspnea and coughing. Continue with IV antibiotics Plan/VTE VTE Prophylaxis Ordered?: Yes Plan 1. Sepsis secondary to right lower lobe pneumonia Meets 3 out of 4 SIRS criteria (fever, tachycardia, tachypnea) Source is right lower lobe pneumonia Question possible Legionella as he has associated abdominal pain with diarrhea and hyponatremia. Pending urine Legionella antigen Received fluids on levofloxacin. 2. Right lower lobe pneumonia Dyspnea with productive cough Did not respond to Augmentin IV levofloxacin Pending sputum culture and urine Legionella antigen Respiratory panel negative 3. Tobacco use [id number] history of smoking Current smoker He has not smoked since becoming ill. Offered nicotine patch, but he has no cravings at this time 4. Anorexia Poor appetite secondary to sepsis Clear liquid diet Zofran as needed, scheduled pantoprazole 5. Hyponatremia May be secondary to dehydration versus medication versus Legionella infection Pending Legionella test Received fluids we'll recheck BMP Hold chlorthalidone as it can contribute to hyponatremia 5. Asthma Stable Continue albuterol as needed 6. Diabetes mellitus As on clear liquid diet decreased Levemir by half. Now on 20 units subcutaneous at night Continue sliding scale insulin 7. Hypertension Continue lisinopril Held chlorthalidone If blood pressure not controlled can add on amlodipine 8. History of early heart disease Father had an [place] at the age of 43, at the age of 65 from [place] He's had a cardiac cath in the past, no stent placed Continue statin 9. DVT prophylaxis Lovenox Dispo: Pending results from legionella antigen and fever response to antibiotics VS, I&O, 24H, Fishbone Vital Signs/I&O Vital Signs Date Time Temp Pulse Resp B/P (MAP) Pulse Ox O2 Delivery O2 Flow Rate FiO2 07/10/20 14:00 98.0 92 18 114/79 (91) 98 Room Air I&O- Last 24 Hours up to 6 AM 07/10/20 06:00 Intake Total 4130 ml Balance 4130 ml Laboratory Data 24H LABS Laboratory Tests 2 07/10/20 05:53: Nucleated Red Blood Cells % (auto) 0.0, Anion Gap 8, Glomerular Filtration Rate > 60.0, Calcium Level 8.9 07/10/20 12:02: Bedside Glucose (Misc Panel) 291H 07/10/20 16:37: Bedside Glucose (Misc Panel) 272H CBC/BMP Laboratory Tests 07/10/20 05:53 Microbiology Microbiology 07/09/20 Blood Culture - Preliminary, Resulted No growth after 24 hours . All specim... 07/09/20 Respiratory Virus Panel (PCR) (MAL) - Final, Complete 07/09/20 Blood Culture - Preliminary, Resulted No growth after 24 hours . All specim... FITZ ROLLINS DO Jul 10, 2020 20:29
[2020-07-10] MEDS ORDERED: diphenhydrAMINE 25MG CAP PO SCH (21:00)
[2020-07-10] MEDS ORDERED: LEVEMIR (INSULIN DETEMIR) 1 UNITS/0.01ML SC SCH (21:00)
[2020-07-10 22:00] VITALS: BP 146/62
[2020-07-11] MEDS: ALBUTEROL 90 MCG/ACT 8GM HFA INHALER INH SCH ×2 (03:23→07:46)
[2020-07-11] MEDS: NS 1,000 ML IV SCH (05:42)
[2020-07-11 06:00] VITALS: BP 146/88
[2020-07-11] MEDS: FLUTICASONE HFA 110 MCG 12 GM INHALER (FLOVENT) INH SCH (07:46)
[2020-07-11 07:56] LABS: HEMATOCRIT 39.1 % (42.0-52.0); HEMOGLOBIN 13.1 g/dl (13.5-17.5); MEAN CORPUSCULAR HEMOGLOBIN 30.3 pg (27.0-33.0); MEAN CORPUSCULAR HGB CONC 33.5 g/dl (32.0-36.5); MEAN CORPUSCULAR VOLUME 90.3 fl (80.0-96.0); PLATELET COUNT, AUTOMATED 235 10^3/uL (150-450); RED BLOOD COUNT 4.33 10^6/uL (4.30-6.10); WHITE BLOOD COUNT 7.2 10^3/uL (4.0-10.0)
[2020-07-11 08:25] LABS: BLOOD UREA NITROGEN 17 MG/DL (7-18); CALCIUM LEVEL 8.1 MG/DL (8.5-10.1); CARBON DIOXIDE LEVEL 26 MEQ/L (21-32); CHLORIDE LEVEL 104 MEQ/L (98-107); CREATININE FOR GFR 0.83 MG/DL (0.70-1.30); GLOMERULAR FILTRATION RATE > 60.0 (>60); GLUCOSE, FASTING 127 MG/DL (70-100); POTASSIUM SERUM 3.4 MEQ/L (3.5-5.1); SODIUM LEVEL 140 MEQ/L (136-145)
[2020-07-11] MEDS: LevoFLOXacin IV 750 MG in IV 1 EA IV SCH (08:58)
[2020-07-11] MEDS: THIAMINE 200MG/2ML VIAL (J3411 PER 100MG) IV SCH (08:59)
[2020-07-11] MEDS: ENOXAPARIN 40MG/0.4ML SYRINGE (J1650 PER 10MG) SC SCH (08:59)
[2020-07-11 09:01] VITALS: BP 148/94
[2020-07-11] MEDS: BENZONATATE 100 MG CAP PO SCH (09:01)
[2020-07-11] MEDS: PANTOPRAZOLE 40MG TAB (PROTONIX) PO SCH (09:01)
[2020-07-11] MEDS: lisinopriL 20 MG TAB PO SCH (09:01)
[2020-07-11] MEDS: ATORVASTATIN 10 MG TAB PO SCH (09:01)
[2020-07-11] MEDS: HumaLOG INSULIN (NovoLOG) PER UNIT SC SCH ×2 (09:55→11:54)
[2020-07-11] MEDS ORDERED: LEVO750T13 PO (11:52)
[2020-07-11] MEDS ORDERED: BENZ-18 PO (11:52)
--- NOTE | 2020-07-11 22:39 | DS.PDOC ---
Discharge Summary General Date of Admission Jul 09, 2020 at 09:52 Date of Discharge Jul 11, 2020 Attending Physician: FITZ ROLLINS DO Discharge Summary PROCEDURES PERFORMED DURING STAY: None ADMITTING DIAGNOSES: 1. Sepsis secondary to right lower lobe pneumonia 2. Right lower lobe pneumonia 3. Tobacco use 4. Anorexia 5. Hyponatremia 6. Asthma 7. Diabetes mellitus 8. Hypertension 9. History of early heart disease DISCHARGE DIAGNOSES: 1. Sepsis secondary to right lower lobe pneumonia 2. Right lower lobe pneumonia 3. Tobacco use 4. Anorexia 5. Hyponatremia 6. Asthma 7. Diabetes mellitus 8. Hypertension 9. History of early heart disease COMPLICATIONS/CHIEF COMPLAINT: Diabetes, Hyponatremia, Rll Pneumonia. HISTORY OF PRESENT ILLNESS: Mr. Chicas is a 39 year old male here with DM, active smoking, and asthma here with 4 days of fever/chills, dyspnea, and productive cough with clear sputum found to have right lower lobe pneumonia and hyponatremia. On , he was feeling well, but Wednesday morning, he woke up feeling ill. Denies sick contacts. Lives with fiancee and daughter who are not ill. Last travel was about 2 to 3 weeks ago at a casino in [place]. In addit ion to the symptoms above, he had fatigue, body aches, and generalized malaise. Symptoms where not improving over the weekend and went to urgent care. COVID was negative and he was put on Augmentin. He did not improve on Augmentin and came to the ED. Respiratory viral panel was negative, but CXR demonstrated RLL PNA. He had another fever in the ED. Otherwise, he has been having abdominal pain that improves with diarrhea. He has not been able to tolerate a diet since he got I'll. Work up in the ED is also significant for hyponatremia. He is on Chlorthalidone, but PCP has never mentioned hyponatremia to him HOSPITAL COURSE: He did well during his hospitalization. While on the antibiotics, he is afebrile for 48 hours. Blood cultures have been negative for 48 hours. Respiratory viral panel was also negative. Today, he was feeling better. His dyspnea and cough has improved. Denies chest pain or dysuria. Still has diarrhea, but is chronic and not worse than before. He felt okay going home. We will send him home with oral Levaquin for 5 additional days. Recommended that he did not return to work for 5 days. He subsequently discharged home. DISCHARGE MEDICATIONS: Please see below. ALLERGIES: Please see below. PHYSICAL EXAMINATION ON DISCHARGE: VITAL SIGNS: Please see below. GENERAL: Comfortable, in no apparent distress. HEENT: Head normocephalic/atraumatic, EOMI, sclera clear. NECK: Supple RESPIRATORY: Lungs clear to auscultation bilaterally CARDIOVASCULAR: Regular rate and rhythm. ABDOMEN: Soft, Normal bowel sounds. MUSCLE SKELETAL: Muscle strength 5/5 in all extremities. NEUROLOGICAL: CN 312 grossly intact, no focal deficits noted. PSYCHOLOGICAL: Normal mood and affect LABORATORY DATA: Please see below. IMAGING: Chest x-ray Patchy RLL infiltrate -- probable infectious pneumonia. The left lung is clear. No pleural effusions. The appearance is not typical for COVID pneumonia. PROGNOSIS: Stable ACTIVITY: As tolerated DIET: Carbohydrate consistent diet DISCHARGE PLAN: Home DISPOSITION: 01 Home, Self-Care. DISCHARGE INSTRUCTIONS: 1. Follow-up with her PCP within 7 days ITEMS TO FOLLOWUP ON ON OUTPATIENT: 1. Final results of blood culture DISCHARGE CONDITION: Stable Total time spent on discharge planning, discharge summary, and med reconciliation: 45 minutes Vital Signs/I&Os Vital Signs Date Time Temp Pulse Resp B/P (MAP) Pulse Ox O2 Delivery O2 Flow Rate FiO2 07/11/20 09:01 148/94 07/11/20 06:00 98.8 92 20 95 Room Air I&O- Last 24 Hours up to 6 AM 07/11/20 06:00 Intake Total 2400 ml Balance 2400 ml Laboratory Data Labs 24H Laboratory Tests 2 07/11/20 06:52: Lab Scanned Report Miscellaneous Lab 07/11/20 06:56: Nucleated Red Blood Cells % (auto) 0.0, Anion Gap 10, Glomerular Filtration Rate > 60.0, Calcium Level 8.1L 07/11/20 11:28: Bedside Glucose (Misc Panel) 177H CBC/BMP Laboratory Tests 07/11/20 06:56 FSBS Laboratory Tests Test 07/11/20 11:28 Range/Units Bedside Glucose (Misc Panel) 177 70-105 MG/DL Microbiology Microbiology 07/09/20 Blood Culture - Preliminary, Resulted No Growth after 48 hours. All Specime... 07/09/20 Respiratory Virus Panel (PCR) (MAL) - Final, Complete 07/09/20 Blood Culture - Preliminary, Resulted No Growth after 48 hours. All Specime... Discharge Medications Scheduled Albuterol Sulfate (Ventolin Hfa) 108 Mcg/Act Aer, 2 PUFFS INH TID, (Reported) Atorvastatin Calcium (Atorvastatin Calcium) 10 Mg Tablet, 10 MG PO DAILY, (Reported) Benzonatate (Benzonatate) 100 Mg Capsule, 100 MG PO TID Esomeprazole Magnesium (Esomeprazole Magnesium) 40 Mg Cap, 40 MG PO DAILY, (Reported) Fluticasone Propionate (Flovent Hfa) 110 Mcg/Act Aer, 1 PUFF INH DAILY, (Reported) Insulin Glargine,Hum.rec.anlog (Basaglar Kwikpen U-100) 100 Unit/1 Ml Insuln.pen, 40 UNIT SC QHS, (Reported) Levofloxacin (Levofloxacin) 750 Mg Tablet, 750 MG PO DAILY Lisinopril (Lisinopril) 20 Mg Tab, 20 MG PO DAILY, (Reported) Metformin HCl (Metformin HCl) 1,000 Mg Tablet, 1,000 MG PO BID, (Reported) Scheduled PRN Meclizine HCl (Meclizine HCl) 25 Mg Tablet, 25 MG PO TID PRN for VERTIGO /DIZZINESS, (Reported) Ondansetron (Ondansetron Odt) 4 Mg Tab.rapdis, 4 MG PO Q6H PRN for NAUSEA, (Reported) Allergies Coded Allergies: No Known Allergies (Unverified , 07/09/20) FITZ ROLLINS DO Jul 11, 2020 22:39
== END 2020-07-11 13:53 | disposition home or self-care (01) | DRG 720 ==
LOC: M ED 06:46 → M ED INP 09:52 → ENRESERV 14:19 → M MS5PR 14:45
PROVIDERS: ADMIT Internal Medicine; ATTEND Internal Medicine
DX: A41.9 Sepsis, unspecified organism (principal); J18.9 Pneumonia, unspecified organism; E87.1 Hypo-osmolality and hyponatremia; J45.909 Unspecified asthma, uncomplicated; E11.9 Type 2 diabetes mellitus without complications; I10 Essential (primary) hypertension; F17.200 Nicotine dependence, unspecified, uncomplicated; Z79.899 Other long term (current) drug therapy

== ENCOUNTER → 2020-07-29 | Outpatient (REF) | payer BC ==
[~2020-07-29] MED LIST changes: +ATOR1TAB19 PO; +AUGM875T28 PO; +BASA100I SC; +BENZ-18 PO; +CHLO25TA PO; +LEVO750T13 PO; +MECL-86 PO; +METF-877 PO; +ONDA4TAB6 PO
[2020-07-29 16:38] LABS: ALBUMIN 3.7 GM/DL (3.2-5.2); ALT/SGPT 53 U/L (12-78); BILIRUBIN,TOTAL 0.4 MG/DL (0.2-1.0); BLOOD UREA NITROGEN 12 MG/DL (7-18); CALCIUM LEVEL 9.3 MG/DL (8.5-10.1); CARBON DIOXIDE LEVEL 29 MEQ/L (21-32); CHLORIDE LEVEL 103 MEQ/L (98-107); CREATININE FOR GFR 0.84 MG/DL (0.70-1.30); GLOMERULAR FILTRATION RATE > 60.0 (>60); GLUCOSE, FASTING 170 MG/DL (70-100); POTASSIUM SERUM 4.5 MEQ/L (3.5-5.1); SODIUM LEVEL 138 MEQ/L (136-145); TOTAL PROTEIN 6.8 GM/DL (6.4-8.2)
[2020-07-29 16:59] LABS: HEMOGLOBIN A1c 6.7 %
== END ==
LOC: M SFHCPLAZ 11:50
PROVIDERS: ATTEND Family Medicine
DX: K76.0 Fatty (change of) liver, not elsewhere classified (principal); F10.10 Alcohol abuse, uncomplicated; E11.9 Type 2 diabetes mellitus without complications; E87.1 Hypo-osmolality and hyponatremia

== ENCOUNTER → 2020-10-31 | Outpatient (REF) | payer BC ==
[~2020-10-31] MED LIST changes: -LISI-538 PO; +LISI20TA33 PO
[2020-10-31 14:26] LABS: HEMOGLOBIN A1c 8.9 %
[2020-10-31 14:45] LABS: ALBUMIN 4.2 GM/DL (3.2-5.2); ALT/SGPT 62 U/L (12-78); BILIRUBIN,TOTAL 0.3 MG/DL (0.2-1.0); BLOOD UREA NITROGEN 17 MG/DL (7-18); CALCIUM LEVEL 9.1 MG/DL (8.5-10.1); CARBON DIOXIDE LEVEL 30 MEQ/L (21-32); CHLORIDE LEVEL 103 MEQ/L (98-107); CHOLESTEROL LEVEL 156 MG/DL (<200); CHOLESTEROL RISK RATIO 5.032 (<5); CREATININE FOR GFR 0.99 MG/DL (0.70-1.30); GLOMERULAR FILTRATION RATE > 60.0 (>60); GLUCOSE, FASTING 158 MG/DL (70-100); HDL CHOLESTEROL 31 MG/DL (>40); LDL CHOLESTEROL 49 MG/DL (<100); NON-HDL-C 125 MG/DL; POTASSIUM SERUM 4.7 MEQ/L (3.5-5.1); SODIUM LEVEL 141 MEQ/L (136-145); TRIGLYCERIDES LEVEL 378 MG/DL (<150)
[2020-10-31 14:56] LABS: MAU/CREAT RATIO 48.3 MCG/MG (0.0-30.0)
== END ==
LOC: M SFHCPLAZ 11:02
PROVIDERS: ATTEND Family Medicine
DX: K76.0 Fatty (change of) liver, not elsewhere classified (principal); I10 Essential (primary) hypertension; E11.9 Type 2 diabetes mellitus without complications; E78.2 Mixed hyperlipidemia

== ENCOUNTER → 2021-03-20 | Outpatient (CLI) | payer BC ==
[2021-03-20 14:23] LABS: HEMOGLOBIN A1c 9.8 %
[2021-03-20 15:06] LABS: ALT/SGPT 82 U/L (12-78); BILIRUBIN,TOTAL 0.3 MG/DL (0.2-1.0); BLOOD UREA NITROGEN 12 MG/DL (7-18); CALCIUM LEVEL 8.9 MG/DL (8.5-10.1); CARBON DIOXIDE LEVEL 28 MEQ/L (21-32); CHLORIDE LEVEL 104 MEQ/L (98-107); CREATININE FOR GFR 0.86 MG/DL (0.70-1.30); GLOMERULAR FILTRATION RATE > 60.0 (>60); GLUCOSE, FASTING 212 MG/DL (70-100); POTASSIUM SERUM 4.5 MEQ/L (3.5-5.1); SODIUM LEVEL 136 MEQ/L (136-145); TOTAL PROTEIN 6.9 GM/DL (6.4-8.2)
== END ==
LOC: M PLALAB 10:33
PROVIDERS: ATTEND Family Medicine
DX: E11.9 Type 2 diabetes mellitus without complications (principal)

== ENCOUNTER → 2021-08-22 | Outpatient (REF) | payer BC | LOC: M LAB REF 12:02 | PROVIDERS: ATTEND Physician Assistant | DX: R05.9 Cough, unspecified (principal); R50.9 Fever, unspecified ==

== ENCOUNTER → 2021-11-04 | Outpatient (CLI) | payer BC ==
[2021-11-04 12:08] LABS: HEMOGLOBIN A1c 9.4 %
[2021-11-04 12:17] LABS: BLOOD UREA NITROGEN 16 MG/DL (7-18); CALCIUM LEVEL 9.6 MG/DL (8.5-10.1); CARBON DIOXIDE LEVEL 27 MEQ/L (21-32); CHLORIDE LEVEL 103 MEQ/L (98-107); CREATININE FOR GFR 0.94 MG/DL (0.70-1.30); GLOMERULAR FILTRATION RATE > 60.0 (>60); GLUCOSE, FASTING 336 MG/DL (70-100); POTASSIUM SERUM 4.5 MEQ/L (3.5-5.1); SODIUM LEVEL 139 MEQ/L (136-145)
[2021-11-04 12:18] LABS: ALBUMIN 4.1 GM/DL (3.2-5.2); ALT/SGPT 64 U/L (12-78); BILIRUBIN,TOTAL 0.3 MG/DL (0.2-1.0); CHOLESTEROL LEVEL 166 MG/DL (<200); CHOLESTEROL RISK RATIO 5.533 (<5); HDL CHOLESTEROL 30 MG/DL (>40); NON-HDL-C 136 MG/DL; TOTAL PROTEIN 7.2 GM/DL (6.4-8.2); TRIGLYCERIDES LEVEL 554 MG/DL (<150)
[2021-11-04 14:16] LABS: CREATININE, URINE 86.3 MG/DL; MALB URINE SIEMENS 72.5 MG/L
== END ==
LOC: M PLALAB 08:16
PROVIDERS: ATTEND Family Medicine
DX: E11.9 Type 2 diabetes mellitus without complications (principal)

== ENCOUNTER → 2022-02-05 | Outpatient (CLI) | payer BC ==
[2022-02-05 10:47] LABS: CHOLESTEROL RISK RATIO 3.862 (<5); HEMOGLOBIN A1c 8.7 %
== END ==
LOC: M PLALAB 08:07
PROVIDERS: ATTEND Family Medicine
DX: E11.9 Type 2 diabetes mellitus without complications (principal)

== ENCOUNTER → 2022-10-01 | Outpatient (CLI) | payer BC ==
[~2022-10-01] MED LIST changes: +LEVO1TAB40 PO; -LEVO750T13 PO
[2022-10-01 11:15] LABS: ALBUMIN 4.2 G/DL (3.2-5.2); ALKALINE PHOSPHATASE 71 U/L (46-116); ALT/SGPT 97 U/L (7.0-40); AST/SGOT 37 U/L (<34); BILIRUBIN,TOTAL 0.3 MG/DL (0.3-1.2); BLOOD UREA NITROGEN 15 MG/DL (9-23); CALCIUM LEVEL 9.5 MG/DL (8.5-10.1); CARBON DIOXIDE LEVEL 27 MMOL/L (20-31); CHLORIDE LEVEL 100 MMOL/L (98-107); CHOLESTEROL LEVEL 145 MG/DL (<200); CHOLESTEROL RISK RATIO 4.64 (<5); CREATININE FOR GFR 0.95 MG/DL (0.70-1.30); GLOMERULAR FILTRATION RATE > 60.0 (>60); GLUCOSE, FASTING 236 MG/DL (60-100); HDL CHOLESTEROL 31.2 MG/DL (>40); NON-HDL-C 114 MG/DL; POTASSIUM SERUM 5.1 MMOL/L (3.5-5.1); SODIUM LEVEL 134 MMOL/L (136-145); TOTAL PROTEIN 6.9 G/DL (5.7-8.2); TRIGLYCERIDES LEVEL 461 MG/DL (<150)
== END ==
LOC: M PLALAB 08:38
PROVIDERS: ATTEND Physician Assistant
DX: E11.9 Type 2 diabetes mellitus without complications (principal)

== ENCOUNTER → 2022-12-31 | Outpatient (CLI) | payer BC ==
[2022-12-31 15:18] LABS: BASO # 0.1 10^3/uL (0.0-0.2); BASO % 0.5 % (0.0-1.0); EOS # 0.2 10^3/uL (0.0-0.5); EOS % 2.4 % (0.0-3.0); HEMATOCRIT 45.2 % (42.0-52.0); HEMOGLOBIN 15.4 g/dl (13.5-17.5); LYMPH # 2.5 10^3/uL (1.5-5.0); LYMPH % 25.9 % (24.0-44.0); MEAN CORPUSCULAR HEMOGLOBIN 31.5 pg (27.0-33.0); MEAN CORPUSCULAR HGB CONC 34.1 g/dl (32.0-36.5); MEAN CORPUSCULAR VOLUME 92.4 fl (80.0-96.0); MONO # 0.7 10^3/uL (0.0-0.8); MONO % 7.5 % (2.0-8.0); NEUTROPHILS % 63.2 % (36.0-66.0); PLATELET COUNT, AUTOMATED 287 10^3/uL (150-450); RED BLOOD COUNT 4.89 10^6/uL (4.30-6.10); WHITE BLOOD COUNT 9.5 10^3/uL (4.0-10.0)
[2022-12-31 15:34] LABS: HEMOGLOBIN A1c 9.7 % (4.0-6.0)
[2022-12-31 15:47] LABS: ALKALINE PHOSPHATASE 62 U/L (46-116); ALT/SGPT 114 U/L (7.0-40); AST/SGOT 52 U/L (<34); BILIRUBIN,TOTAL 0.5 MG/DL (0.3-1.2); BLOOD UREA NITROGEN 14 MG/DL (9-23); CALCIUM LEVEL 9.7 MG/DL (8.5-10.1); CARBON DIOXIDE LEVEL 29 MMOL/L (20-31); CHLORIDE LEVEL 98 MMOL/L (98-107); CHOLESTEROL LEVEL 105 MG/DL (<200); CHOLESTEROL RISK RATIO 3.06 (<5); CREATININE FOR GFR 0.88 MG/DL (0.70-1.30); GLOMERULAR FILTRATION RATE > 60.0 (>60); GLUCOSE, FASTING 149 MG/DL (60-100); HDL CHOLESTEROL 34.3 MG/DL (>40); LDL CHOLESTEROL 34.1 MG/DL (<100); NON-HDL-C 70.7 MG/DL; POTASSIUM SERUM 4.2 MMOL/L (3.5-5.1); SODIUM LEVEL 136 MMOL/L (136-145); TOTAL PROTEIN 6.7 G/DL (5.7-8.2); TRIGLYCERIDES LEVEL 183 MG/DL (<150)
== END ==
LOC: M PLALAB 12:20
PROVIDERS: ATTEND Physician Assistant
DX: E11.9 Type 2 diabetes mellitus without complications (principal)

== ENCOUNTER → 2023-04-01 | Outpatient (CLI) | payer BC ==
[~2023-04-01] MED LIST changes: -FLUT11IN INH; +FLUT12AE6 INH
[2023-04-01 10:53] LABS: BASO # 0.1 10^3/uL (0.0-0.2); BASO % 0.6 % (0.0-1.0); EOS % 10.7 % (0.0-3.0); HEMOGLOBIN 14.8 g/dl (13.5-17.5); LYMPH # 2.4 10^3/uL (1.5-5.0); LYMPH % 24.6 % (24.0-44.0); MEAN CORPUSCULAR HEMOGLOBIN 31.1 pg (27.0-33.0); MEAN CORPUSCULAR HGB CONC 32.9 g/dl (32.0-36.5); MEAN CORPUSCULAR VOLUME 94.5 fl (80.0-96.0); MONO # 0.7 10^3/uL (0.0-0.8); MONO % 7.4 % (2.0-8.0); NEUTROPHILS # 5.5 10^3/uL (1.5-8.5); NEUTROPHILS % 56.5 % (36.0-66.0); PLATELET COUNT, AUTOMATED 328 10^3/uL (150-450); RED BLOOD COUNT 4.76 10^6/uL (4.30-6.10); WHITE BLOOD COUNT 9.7 10^3/uL (4.0-10.0)
[2023-04-01 11:18] LABS: FERRITIN 192.6 NG/ML (10.5-307.3)
[2023-04-01 11:19] LABS: VITAMIN B12 LEVEL 649 PG/ML (211-911)
[2023-04-01 11:20] LABS: ALBUMIN 4.2 G/DL (3.2-5.2); ALKALINE PHOSPHATASE 54 U/L (46-116); ALT/SGPT 62 U/L (7.0-40); AST/SGOT 8 U/L (<34); BILIRUBIN,TOTAL 0.6 MG/DL (0.3-1.2); BLOOD UREA NITROGEN 21 MG/DL (9-23); CALCIUM LEVEL 9.5 MG/DL (8.5-10.1); CARBON DIOXIDE LEVEL 28 MMOL/L (20-31); CHLORIDE LEVEL 100 MMOL/L (98-107); CREATININE FOR GFR 1.12 MG/DL (0.70-1.30); GLOMERULAR FILTRATION RATE > 60.0 (>60); GLUCOSE, FASTING 92 MG/DL (60-100); POTASSIUM SERUM 4.7 MMOL/L (3.5-5.1); SODIUM LEVEL 137 MMOL/L (136-145); TOTAL PROTEIN 6.7 G/DL (5.7-8.2)
[2023-04-01 11:21] LABS: HEMOGLOBIN A1c 5.2 % (4.0-6.0)
== END ==
LOC: M PLALAB 08:53
PROVIDERS: ATTEND Physician Assistant
DX: E11.9 Type 2 diabetes mellitus without complications (principal); I10 Essential (primary) hypertension; R42 Dizziness and giddiness

== ENCOUNTER → 2023-12-16 | Outpatient (CLI) | payer BC ==
[~2023-12-16] MED LIST changes: +MECL-209 PO; -MECL1TAB31 PO
[2023-12-16 13:48] LABS: BASO # 0.1 10^3/uL (0.0-0.2); EOS # 0.2 10^3/uL (0.0-0.5); EOS % 2.4 % (0.0-3.0); HEMATOCRIT 44.8 % (42.0-52.0); HEMOGLOBIN 15.3 g/dl (13.5-17.5); LYMPH # 2.3 10^3/uL (1.5-5.0); LYMPH % 27.4 % (24.0-44.0); MEAN CORPUSCULAR HEMOGLOBIN 31.8 pg (27.0-33.0); MEAN CORPUSCULAR HGB CONC 34.2 g/dl (32.0-36.5); MEAN CORPUSCULAR VOLUME 93.1 fl (80.0-96.0); MONO # 0.7 10^3/uL (0.0-0.8); PLATELET COUNT, AUTOMATED 300 10^3/uL (150-450); RED BLOOD COUNT 4.81 10^6/uL (4.30-6.10); WHITE BLOOD COUNT 8.3 10^3/uL (4.0-10.0)
[2023-12-16 14:21] LABS: THYROID STIMULATING HORMONE 2.284 uIU/ML (0.55-4.78)
[2023-12-16 14:25] LABS: TESTOSTERONE 340 NG/DL (241-827); TOTAL 25(OH) VITAMIN D 25.8 NG/ML (20.0-100.0)
[2023-12-16 14:27] LABS: ALBUMIN 4.1 G/DL (3.2-5.2); ALKALINE PHOSPHATASE 56 U/L (46-116); ALT/SGPT 60 U/L (7.0-40); AST/SGOT 21 U/L (<34); BILIRUBIN,TOTAL 0.4 MG/DL (0.3-1.2); BLOOD UREA NITROGEN 16 MG/DL (9-23); CALCIUM LEVEL 9.3 MG/DL (8.5-10.1); CARBON DIOXIDE LEVEL 28 MMOL/L (20-31); CHLORIDE LEVEL 103 MMOL/L (98-107); CHOLESTEROL LEVEL 118 MG/DL (<200); CHOLESTEROL RISK RATIO 3.36 (<5); CREATININE FOR GFR 0.91 MG/DL (0.70-1.30); GLOMERULAR FILTRATION RATE > 60.0 (>60); GLUCOSE, FASTING 141 MG/DL (60-100); HDL CHOLESTEROL 35.1 MG/DL (>40); LDL CHOLESTEROL 56.1 MG/DL (<100); NON-HDL-C 82.9 MG/DL; POTASSIUM SERUM 4.4 MMOL/L (3.5-5.1); SODIUM LEVEL 140 MMOL/L (136-145); TOTAL PROTEIN 6.9 G/DL (5.7-8.2); TRIGLYCERIDES LEVEL 134 MG/DL (<150)
[2023-12-16 15:56] LABS: HEMOGLOBIN A1c 7.1 % (4.0-6.0)
== END ==
LOC: M PLALAB 10:23
PROVIDERS: ATTEND Physician Assistant
DX: E55.9 Vitamin D deficiency, unspecified (principal); I10 Essential (primary) hypertension; K76.0 Fatty (change of) liver, not elsewhere classified; N52.1 Erectile dysfunction due to diseases classified elsewhere; E78.2 Mixed hyperlipidemia; E66.01 Morbid (severe) obesity due to excess calories; E11.9 Type 2 diabetes mellitus without complications

== ENCOUNTER → 2024-04-06 | Outpatient (CLI) | payer BC ==
[~2024-04-06] MED LIST changes: +ESOM1CAP20 PO; -ESOM1CAP5 PO; +ONDA-282 PO; -ONDA4TAB6 PO
== END ==
LOC: M PLAIMG 10:49
PROVIDERS: ATTEND Physician Assistant
DX: M25.512 Pain in left shoulder (principal)

== ENCOUNTER → 2024-10-26 | Outpatient (CLI) | payer BC ==
[2024-10-26 15:04] LABS: ALKALINE PHOSPHATASE 61 U/L (40-129); ALT/SGPT 73 U/L (7.0-40); AST/SGOT 29 U/L (<34); BILIRUBIN,TOTAL 0.4 MG/DL (0.3-1.2); BLOOD UREA NITROGEN 15 MG/DL (9-23); CALCIUM LEVEL 9.9 MG/DL (8.5-10.1); CARBON DIOXIDE LEVEL 28 MMOL/L (20-31); CHLORIDE LEVEL 102 MMOL/L (98-107); CHOLESTEROL LEVEL 108 MG/DL (<200); CHOLESTEROL RISK RATIO 3.41 (<5); CREATININE FOR GFR 0.97 MG/DL (0.70-1.30); GLOMERULAR FILTRATION RATE > 60.0 (>60); GLUCOSE, FASTING 126 MG/DL (60-100); HDL CHOLESTEROL 31.6 MG/DL (>40); LDL CHOLESTEROL 38.8 MG/DL (<100); NON-HDL-C 76.4 MG/DL; POTASSIUM SERUM 4.7 MMOL/L (3.5-5.1); SODIUM LEVEL 138 MMOL/L (136-145); TOTAL PROTEIN 7.1 G/DL (5.7-8.2); TRIGLYCERIDES LEVEL 188 MG/DL (<150)
[2024-10-26 15:15] LABS: HEMOGLOBIN A1c 6.8 % (4.0-6.0)
== END ==
LOC: M PLALAB 09:22
PROVIDERS: ATTEND Nurse Practitioner Family
DX: Z12.5 Encounter for screening for malignant neoplasm of prostate (principal)

== ENCOUNTER → 2025-07-26 | Outpatient (REF) | payer BC | LOC: M SFHCPLAZ 11:58 | PROVIDERS: ATTEND Family Medicine | DX: I10 Essential (primary) hypertension (principal); E11.9 Type 2 diabetes mellitus without complications; E78.2 Mixed hyperlipidemia ==

== ENCOUNTER → 2025-07-26 | Outpatient (CLI) | payer BC ==
[2025-07-26 15:05] LABS: PLATELET COUNT, AUTOMATED 352 10^3/uL (150-450)
[2025-07-26 15:10] LABS: ALT/SGPT 66 U/L (7.0-40); AST/SGOT 27 U/L (<34); CALCIUM LEVEL 9.5 MG/DL (8.5-10.1); CARBON DIOXIDE LEVEL 28 MMOL/L (20-31); CHLORIDE LEVEL 99 MMOL/L (98-107); CHOLESTEROL LEVEL 107 MG/DL (<200); CHOLESTEROL RISK RATIO 3.49 (<5); CREATININE FOR GFR 1.03 MG/DL (0.70-1.30); GLOMERULAR FILTRATION RATE > 90.0 (>60); LDL CHOLESTEROL 34.0 MG/DL (<100); NON-HDL-C 76.4 MG/DL; POTASSIUM SERUM 3.9 MMOL/L (3.5-5.1); SODIUM LEVEL 136 MMOL/L (136-145); TRIGLYCERIDES LEVEL 212 MG/DL (<150)
[2025-07-26 15:16] LABS: ESTIMATED AVERAGE GLUCOSE 278.0 MG/DL (60-110)
== END ==
LOC: M PLALAB 12:03
PROVIDERS: ATTEND Family Medicine
DX: I10 Essential (primary) hypertension (principal); E11.9 Type 2 diabetes mellitus without complications